=== PATIENT | male | born 1990 | race Caucasian/White ===

== ENCOUNTER 2020-01-13 16:10 | Outpatient (CLI) | payer BC, SELFPAY ==
--- NOTE | 2020-01-13 16:16 | CT_ITS ---
WS: [id number] CT LUMBAR SPINE, noncontrast. HISTORY: SEVERE LOW BACK PAIN TECHNIQUE: Contiguous 2.5 mm axial imaging are performed. Sagittal and coronal reformats are submitte d and reviewed. All CT scans at [facility] use at least one of these dose optimization te chniques: automated exposure control; mA and/or kV adjustment per patient size (includes targeted exa ms where dose is matched to clinical indication); or iterative reconstruction. IV contrast: None DLP: 2015.13 mGycm COMPARISON: None available. Normal lumbar alignment. Vertebral body heights and the disc spaces are well-maintained. No fractures are identified. Transverse processes and the spinous processes are intact. Visualized sacrum is inta ct. L1-2: Normal. L2-3: Normal. L3-4: Mild disc bulging and ligamentum flavum hypertrophy. L4-5: Mild annular disc bulging with mild encroachment upon the ventral thecal sac, subarticular rece sses and foramen. L5-S1: Normal. Visualized retroperitoneum is normal. CT/CT lumbar spine wo con* [id number] IMPRESSION: 1. No acute lumbar spine fracture. 2. Mild central, subarticular recess and foraminal stenosis at L4-5.
== END 2020-01-13 16:11 | disposition home or self-care (01) ==
LOC: RADWPI 16:16
PROVIDERS: PCP Nurse Practitioner Family; Visit Provider Nurse Practitioner Family
DX: M54.5 Low back pain (principal); M48.061 Spinal stenosis, lumbar region without neurogenic claudication
CPT/HCPCS: 72131

== ENCOUNTER 2020-04-07 06:24 | Outpatient (CLI) | payer BC, SELFPAY ==
--- NOTE | 2020-04-07 06:59 | ECG_ITS ---
[facility] Test Date: 2020-04-07 Pat Name: Francisco Andrews Department: Room: Gender: Male Sailing Officer: Maritza Knapp : 1990 Requested By: Omayra Yang Order Number: [id number] Pavan MD: Claudia Jones M.D. Interpretive Statements NAME OF STUDY: LEXISCAN SESTAMIBI STRESS TEST INDICATION: Chest Pain PROCEDURE: At the baseline, the blood pressure was 155/79 mmHg with a heart rate of 98 bpm. The electrocardiogram showed sinus rhythm, normal axis and RSR' in V1 likely normal variant. Nonspecific T wave inversion. The Lexiscan was infused over a period of 20 seconds. A total of 0.4 milligrams of Lexiscan was infused. The stress phase was continued for a total of 5 minutes. Heart rate at the end of the stress phase was 103 bpm with a blood pressure 166/67 mmHg. The EKG at the peak infusion revealed sinus tachycardia with no significant ST-T wave changes. Study was terminated due to protocol completion. Sestamibi was injected 20 seconds after the Lexiscan infusion. Blood pressure at the end of the recovery phase was 139/67 mmHg with a heart rate of 105 beats per minute. CONCLUSION: 1. Normal EKG response to LexiScan infusion. 2. No LexiScan induced chest pain or cardiac arrhythmia. 3. Functional status could not be assessed given pharmacological protocol. 4. Baseline hypertension with normal blood pressure and heart rate response. 5. Sestamibi/sestamibi perfusion scan pending; see separate report. Electronically Signed On 04-07-2020 10:06:46 CDT by Claudia Jones M.D. [email or web address]
--- NOTE | 2020-04-07 07:00 | NMCV_ITS ---
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 Images obtained in supine and prone position. SPECT RESULTS Technical Quality: Excellent Raw Data Analysis: Normal Image Corrections: No attenuation or motion correction applied Summed Stress Score: 0 Summed Rest Score: 5 Summed Difference Score: 0 PERFUSION FINDINGS Small area of fixed perfusion defect noted in basal to mid anterior and medium- sized area of fixed perfusion defect noted in basal to mid inferior and inferoseptal wall suggestive of old myocardial infarction versus scarring. No ischemia detected. FUNCTIONAL RESULTS (calculated via Gated SPECT) Stress Image LV EF (%): 66 Stress EDV (mL):145 TID: 0.83 Stress ESV (mL):49 Rest Image LV EF (%): 66 FUNCTIONAL FINDINGS: Basal to mid inferior inferoseptal wall hypokinesis IMPRESSIONS Small area of old myocardial infarction versus scarring noted in basal to mid anterior and medium-sized area of old myocardial infarction versus scarring noted in basal to mid inferior and inferoseptal wall suggestive of old myocardial infarction versus scarring. This study is negative for ischemia. EKG segment will be documented separately. Latasha Amaral MD (Electronically Signed) Final Date: 07 April 2020 21:17 S
[2020-04-07 07:04] VITALS: BMI 44.9
[2020-04-07] MEDS: regadenoson 0.4 Mg/5 ml Syringe IVP (08:26)
== END 2020-04-07 06:25 | disposition home or self-care (01) ==
LOC: RAD 06:27
PROVIDERS: PCP Nurse Practitioner Family; Visit Provider Nurse Practitioner Family
DX: R07.9 Chest pain, unspecified (principal); I25.2 Old myocardial infarction
CPT/HCPCS: 78452; 93017; A9500; J2785

== ENCOUNTER → 2020-10-11 08:46 | Outpatient (BNVA) | payer BC, SELFPAY | PROVIDERS: PCP Nurse Practitioner Family; Referring Provider Nurse Practitioner Family; Visit Provider Orthopaedic Surgery | DX: M25.562 Pain in left knee (principal) | CPT/HCPCS: 73560 ==

== ENCOUNTER → 2020-11-30 13:09 | Outpatient (BNVA) | payer BC, SELFPAY | PROVIDERS: PCP Nurse Practitioner Family; Visit Provider Orthopaedic Surgery | DX: M54.5 Low back pain (principal) | CPT/HCPCS: 72110 ==

== ENCOUNTER 2021-01-21 07:38 | Emergency (ER) | payer BC, SELFPAY ==
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
[2021-01-21 07:41] VITALS: BP 127/71; PULSE 121; RESP 30; O2SAT 92; BMI 42.8
[2021-01-21] MEDS: fentaNYL 50 mcg/mL INJ 2mL 100 MCG IVP ×2 (07:51→09:36)
[2021-01-21 07:54] VITALS: O2SAT 85
[2021-01-21] MEDS: lidocaine 1% INJ 20 mL INJECTION (07:55)
[2021-01-21] MEDS: fentaNYL 50 mcg/mL INJ 2mL IVP ×4 (08:01→09:18)
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
[2021-01-21 08:08] LABS: Alanine Aminotransferase 126 U/L (0-41); Albumin Level 4.4 g/dL (3.5-5.2); Alkaline Phosphatase 107 IU/L (40-130); Anion Gap 21.4 (5-19); Aspartate Amino Transferase 131 U/L (0-40); Blood Urea Nitrogen 13 mg/dL (6-20); Carbon Dioxide 21 mmol/L (22-29); Chloride 99 mmol/L (98-107); Globulin 2.6 g/dL (1.3-4.6); Glomerular Filtration Rate 134.3 mL/min (90-130); Glucose 177 mg/dL (65-115); Osmolality Calculated 288 mOsm/kg (285-295); Potassium 4.4 mmol/L (3.5-5.1); Sodium 137 mmol/L (136-145); Total Bilirubin 0.2 mg/dL (0.15-1.2)
[2021-01-21 08:09] LABS: INR 1.01 (0.8-1.2); Partial Thromboplastin Time 27.1 SECONDS (23.9-36.7)
--- NOTE | 2021-01-21 08:10 | PC.NURSE ---
,pt to ct scan by stretcher with COLLAR [employer]TER OVERLOCK and ER physician and RT
[2021-01-21 08:13] LABS: Basophils # 0.2 10^3/uL (0.0-0.1); Basophils % 0.7 %; Eosinophils # 0.4 10^3/uL (0.0-0.8); Eosinophils % 1.6 %; Hemoglobin 14.5 g/dL (11.7-16.6); Lymphocytes # 10.7 10^3/uL (0.8-4.8); Lymphocytes % 43.9 %; Mean Corpuscular Hemoglobin 29.8 pg (28.0-34.0); Mean Corpuscular Volume 90.5 fL (80-94); Mean Platelet Volume 9.6 fL (7.4-10.4); Monocytes # 1.5 10^3/uL (0.2-0.9); Neutrophils # 10.73 10^3/uL (1.8-7.7); Neutrophils % 44.1 %; Nucleated Red Blood Cells % 0 %; Platelet Count 536 10^3/cmm (130-400); Red Blood Count 4.86 10^6/uL (4.1-5.3); Red Cell Distribution Width 12.4 % (12.1-15.1); Slide Review Slide Review Perform; White Blood Count 24.3 10^3/uL (4.0-10.0)
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
[2021-01-21 08:30] VITALS: PULSE 123; RESP 32; O2SAT 97
[2021-01-21] MEDS: ceFAZolin 1,000 MG in sodium chloride 0.9% (plus) 50 ML 100 MG IV (08:30)
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
[2021-01-21 08:48] VITALS: BP 152/129
[2021-01-21] MEDS: iodixanol 320 mg/mL 100mL Btl IV (08:52)
--- NOTE | 2021-01-21 08:53 | PC.NURSE ---
1st unit of O- blood started at 0821 and finished infusing 0835. 2nd unit of O- blood started at 0839 and finished infusing 0854
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
[2021-01-21 09:09] VITALS: BP 169/86; PULSE 138; RESP 30; O2SAT 98
--- NOTE | 2021-01-21 09:34 | XR_ITS ---
WS: [id number] Exam: XR chest 1V portable [id number] Date/Time of Exam: 01/21/2021 9:34 AM Reason For Exam: CHEST TUBE PLACEMENT Comparison with the earlier exam performed on the same day at 0745 hours. Two Thoracostomy tubes are in place on the right. The upper tube extends into the upper medial right pleural cavity. The inferior most tube extends into the lower medial pleural cavity. The lungs appear to be fully inflated. Cardiomediastinal structures are unremarkable for technique. Bony structures a re intact as visualized. Mild subcutaneous emphysema along the right rib cage. XR/XR chest 1V portable [id number] IMPRESSION: 1. [address] in the right pleural cavity as noted above. Th e lungs appear to be fully expanded. 2. Cardiomediastinal structures are unremarkable. 3. The lungs appear to be relatively clear.
--- NOTE | 2021-01-21 09:48 | PC.NURSE ---
FFP started at 0908 and was completely infused at 0918
--- NOTE | 2021-01-21 09:49 | PC.NURSE ---
pt sent with 4 units of PRBC
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
--- NOTE | 2021-01-27 07:03 | PC.NURSE ---
*2 28fr chest tubes, and *1 36fr chest tube used. unable to document these charges
== END 2021-01-21 09:52 ==
PROVIDERS: Physician Assistant; Emergency Provider Family Medicine; PCP Nurse Practitioner Family
DX: S25.00XA Unspecified injury of thoracic aorta, initial encounter (principal); S27.0XXA Traumatic pneumothorax, initial encounter; S72.352A Displaced comminuted fracture of shaft of left femur, initial encounter for closed fracture; S72.321A Displaced transverse fracture of shaft of right femur, initial encounter for closed fracture; S82.891A Other fracture of right lower leg, initial encounter for closed fracture; I10 Essential (primary) hypertension; F17.210 Nicotine dependence, cigarettes, uncomplicated; V89.2XXA Person injured in unspecified motor-vehicle accident, traffic, initial encounter
CPT/HCPCS: 32551; 70450; 71045; 71260; 72125; 73551; 73560; 73600; 74178; 80053; 85025; 85610; 85730; 86850; 86900; 86920; 86927; 96365; 96367; 96375; 96376; 99291; 99292; J0690; J3010; P9016; P9017; Q9967

== ENCOUNTER 2021-04-29 12:05 | Emergency (ER) | payer BC, SELFPAY ==
[2021-04-29 12:41] VITALS: BP 164/84; PULSE 119; RESP 18; TEMP 36.4; O2SAT 98; BMI 42.2
--- NOTE | 2021-04-29 12:49 | CT_ITS ---
WS: [id number] CT ABDOMEN AND PELVIS WITH CONTRAST HISTORY: General abdominal pain with vomiting for 2 days. TECHNIQUE: Imaging performed of the abdomen and pelvis with IV contrast. Single phase imaging of the abdomen. Coronal and sagittal reformats are submitted. All CT scans at [facility] use at [address] one of these dose optimization techniques: automated exposure control; mA and/or kV adjustment per patient size (includes targeted exams where dose is matched to clinical indication); or iterative re construction. IV CONTRAST: Omnipaque 300; 95 mL IV. Oral contrast: No DLP: 2285.68 mGy.cm COMPARISON: 01/21/2021 Lower thorax: Lung bases are clear. Heart is normal size. Small hiatal hernia. Liver/biliary system: Liver is top normal size. Coarse echotexture from hepatic steatosis. No bile du ct dilatation or mass. Gallbladder: Normal. No gallstones or wall thickening. No pericholecystic fluid. Pancreas: Normal size pancreas and pancreatic duct. No adjacent inflammation. Spleen: Normal size spleen. No mass or infarct. Adrenal glands: Normal. Right kidney: Normal. Left kidney: Normal. Aorta: Normal. Lymphadenopathy: None. Free fluid: None. GI tract: Normal appendix. There is very minimal mucosal edema involving predominantly the transverse colon. No significant amount of adjacent inflammation and no obstruction. Abdominal wall: Unremarkable abdominal wall. No hernia. Pelvis: No free fluid or adenopathy within the pelvis. Bones: Rib fractures are reidentified in the posterior RIGHT thorax. These were described on 1. CT/CT abdomen pelvis w con* [id number] IMPRESSION: 1. Very minimal changes of colitis involving the transverse colon. No obstruct ion or ascites. 2. Normal appendix. 3. Mild hepatic steatosis.
[2021-04-29] MEDS: ondansetron 2 mg/ML SDV 2 mL 4 MG IVP (13:05)
[2021-04-29] MEDS: sodium chloride 0.9% 1,000 ML 999 ML IV ×3 (13:05→17:09)
[2021-04-29 13:09] VITALS: BP 142/109; PULSE 116; RESP 18; O2SAT 98
[2021-04-29 13:22] LABS: Basophils # 0.1 10^3/uL (0.0-0.1); Basophils % 0.5 %; Eosinophils % 0.2 %; Hematocrit 46.7 % (42.0-52.0); Hemoglobin 15.9 g/dL (11.7-16.6); Lymphocytes # 2.7 10^3/uL (0.8-4.8); Lymphocytes % 22.1 %; Mean Corpuscular Hemoglobin 28.5 pg (28.0-34.0); Mean Corpuscular Volume 83.8 fl (80-94); Mean Platelet Volume 9.4 fL (7.4-10.4); Monocytes # 0.6 10^3/uL (0.2-0.9); Neutrophils # 8.71 10^3/uL (1.8-7.7); Neutrophils % 71.8 %; Nucleated Red Blood Cells % 0 %; Platelet Count 508 10^3/cmm (130-400); Red Blood Count 5.57 10^6/uL (4.1-5.3); Red Cell Distribution Width 13.2 % (12.1-15.1); White Blood Count 12.1 10^3/uL (4.0-10.0)
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
[2021-04-29 13:49] LABS: Alanine Aminotransferase 42 U/L (0-41); Albumin Level 4.6 g/dL (3.5-5.2); Alkaline Phosphatase 197 IU/L (40-130); Anion Gap 25.4 (5-19); Aspartate Amino Transferase 29 U/L (0-40); Blood Urea Nitrogen 14 mg/dL (6-20); Calcium 9.9 mg/dL (8.5-10.5); Carbon Dioxide 19 mmol/L (22-29); Chloride 93 mmol/L (98-107); Creatine Phosphokinase 54 U/L (39-308); Globulin 3.8 g/dL (1.3-4.6); Glomerular Filtration Rate 160.4 mL/min (90-130); Glucose 158 mg/dL (65-115); Lipase 17 U/L (13-60); Osmolality Calculated 280 mOsm/kg (285-295); Potassium 4.4 mmol/L (3.5-5.1); Sodium 133 mmol/L (136-145); Total Bilirubin 0.4 mg/dL (0.15-1.2); Total Protein 8.4 g/dL (6.6-8.7)
[2021-04-29] MEDS: iohexol 300 mg/mL 100 mL Btl IV (13:53)
[2021-04-29] MEDS: promethazine 25 mg/mL SDV 1 mL IM (14:38)
[2021-04-29 14:49] VITALS: BP 144/79; PULSE 119; RESP 18; O2SAT 100
[2021-04-29 16:00] VITALS: BP 136/77; PULSE 112; RESP 18; O2SAT 97
--- NOTE | 2021-04-29 16:04 | XRR_ITS ---
PROCEDURE INFORMATION: Exam: XR Chest Exam date and time: 04/29/2021 4:04 PM Age: 30 years old Clinical indication: Cough and dyspnea; Additional info: Dyspnea/cough TECHNIQUE: Imaging protocol: XR of the chest. Views: 1 view. COMPARISON: CR XR chest 1V portable [id number] 01/21/2021 9:30 AM FINDINGS: Lungs: Unremarkable. No consolidation. Pleural spaces: Unremarkable. No pleural effusion. No pneumothorax. Heart/Mediastinum: Unremarkable. No cardiomegaly. Bones/joints: Unremarkable. XR/XR chest 1V portable [id number] IMPRESSION: No acute findings.
[2021-04-29] MEDS: LORazepam 2 mg/mL INJ 1 mL IVP (17:09)
[2021-04-29 17:46] LABS: ABG PCO2 39.4 mmHg (35-45); ABG PH Result 7.38 (7.35-7.45); Alveolar-Arterial Oxygen Gradi 3.8 mmHg (5-10); Arterial Blood Gas Hematocrit 44.3 % (42-52); Base Excess ABG -1.5 mmol/L (-2.0-2.0); Blood Gas Allen Test Pos; Blood Gas Operator Identificat CAK; Blood Gas Sample Site Radial, left; Blood Gas Sample Type Arterial; Carboxyhemoglobin 0.6 %THgb (0.4-20.1); HCO3 ABG 23.4 mmol/L (22-26); HGB O2 Sat 92.6 % (95-100); Ionized Calcium Level - ABG 1.2 mmol/L (1.1-1.4); Methemoglobin 0.9 % (0.4-1.5); Oxygen Device ROOM AIR; PO2 ABG 71.4 mmHg (80.0-100.0); Total Hemoglobin 14.5 g/dL (14-18)
[2021-04-29 18:29] LABS: Anion Gap 15.3 (5-19); Blood Urea Nitrogen 13 mg/dL (6-20); Calcium 8.5 mg/dL (8.5-10.5); Carbon Dioxide 24 mmol/L (22-29); Chloride 101 mmol/L (98-107); Glucose 115 mg/dL (65-115); Osmolality Calculated 283 mOsm/kg (285-295); Potassium 4.3 mmol/L (3.5-5.1); Sodium 136 mmol/L (136-145)
[2021-04-29] MEDS: sodium chloride 0.9% 1,000 ML 150 ML IV (20:25)
[2021-04-29 21:56] LABS: Add Urine Microscopic? YES; Bilirubin Urine Neg (Negative); Blood Urine Neg (Negative); Glucose Urine UA Norm (Normal); Ketones Urine 3+ (Negative); Leukocyte Esterase Urine Negative (Negative); Nitrate Urine Negative (Negative); Protein Urine 1+ (Negative); Urine Appearance Clear (CLEAR); Urine Color Yellow (Yellow); Urobilinogen Urine 1 mg/dL (Negative); pH Urine 7 (5-7)
[2021-04-29 22:02] LABS: Add Urine Culture? No; Bacteria Urine TRACE /hpf; Mucus Urine 2+ /hpf; RBC Urine 0-4 /hpf (0-2); Squamous Epithelial Cell Urine 0-4 /hpf (0-5); WBC Urine 0-4 /hpf (0-5)
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
[2021-04-30 01:00] VITALS: BP 134/84; PULSE 118; RESP 20; O2SAT 99
--- NOTE | 2021-04-30 01:06 | ECG_ITS ---
[facility] Test Date: 2021-04-30 Pat Name: Francisco Andrews Department: Room: ED Gender: Male Health Unit Supervisor: : 1990 Requested By: Viviana Vasquez Order Number: [id number] Reading MD: MAGY CARTER Measurements Intervals [place] Rate: 104 P: 31 [place]: 142 QRS: 52 QRSD: 95 T: 31 QT: 326 QTc: 429 Interpretive Statements SINUS TACHYCARDIA POSSIBLE RIGHT VENTRICULAR CONDUCTION DELAY [RSR (QR) IN V1/V2] NONSPECIFIC T-WAVE ABNORMALITY ABNORMAL RHYTHM ECG No previous ECG available for comparison Electronically Signed On 04-30-2021 20:18:04 CDT by MAGY CARTER [email or web address]
[2021-04-30] MEDS: metoprolol tartrate 1 mg/1 mL SDV 5 mL 2.5 MG IVP (01:14)
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
[2021-04-30 02:15] VITALS: BP 133/88; PULSE 90; RESP 20; TEMP 37; O2SAT 97
[2021-04-30 06:37] LABS: Estmated Average Glucose 114; Hemoglobin A1C 5.6 % (4.0-6.0)
[2021-04-30 08:03] LABS: Thyroid Stimulating Hormone 0.64 uIU/mL (0.27-4.20)
[2021-05-01 07:57] LABS: Glucose Point of Care 97 mg/dL (70-110)
== END 2021-04-30 02:15 | disposition still patient (30) ==
LOC: ER 16:51 → ER IP 04-30 01:03
PROVIDERS: Hospitalist; Physician Assistant; Emergency Provider Family Medicine; PCP Nurse Practitioner Family
DX: K52.9 Noninfective gastroenteritis and colitis, unspecified (principal); R00.0 Tachycardia, unspecified; T50.905A Adverse effect of unspecified drugs, medicaments and biological substances, initial encounter; I10 Essential (primary) hypertension; Z87.891 Personal history of nicotine dependence
CPT/HCPCS: 36416; 36600; 71045; 74177; 80048; 80051; 80053; 81001; 82330; 82550; 82805; 82962; 83036; 83690; 84443; 85025; 93005; 96361; 96372; 96374; 96375; 99284; J2060; J2405; J2550; J3490; J7030; Q9967

== ENCOUNTER 2021-06-27 11:09 | Emergency (ER) | payer BC, SELFPAY ==
[2021-06-27] VITALS (7 sets, daily range): BP systolic 122–167; BP diastolic 55–90; PULSE 90–115; RESP 14–24; TEMP 36.6–36.8; O2SAT 94–99; BMI 42.3
--- NOTE | 2021-06-27 12:53 | PC.NURSE ---
notified charge nurse galina lutz of need of room she verbalized understanding no room given.
[2021-06-27 15:55] LABS: Basophils # 0.1 10^3/uL (0.0-0.1); Basophils % 0.6 %; Eosinophils # 0.2 10^3/uL (0.0-0.8); Eosinophils % 1.3 %; Hematocrit 45.7 % (42.0-52.0); Hemoglobin 14.8 g/dL (11.7-16.6); Lymphocytes % 31.7 %; Mean Corpuscular HGB Conc 32.4 g/dL (30.0-36.0); Mean Corpuscular Hemoglobin 28.8 pg (28.0-34.0); Mean Corpuscular Volume 89.1 fl (80-94); Mean Platelet Volume 9.1 fL (7.4-10.4); Monocytes # 0.9 10^3/uL (0.2-0.9); Monocytes % 7.3 %; Neutrophils # 7.42 10^3/uL (1.8-7.7); Neutrophils % 58.7 %; Nucleated Red Blood Cells % 0 %; Platelet Count 515 10^3/cmm (130-400); Red Blood Count 5.13 10^6/uL (4.1-5.3); Red Cell Distribution Width 13.1 % (12.1-15.1); White Blood Count 12.6 10^3/uL (4.0-10.0)
[2021-06-27 16:11] LABS: Alanine Aminotransferase 34 U/L (0-41); Albumin Level 4.7 g/dL (3.5-5.2); Alkaline Phosphatase 208 IU/L (40-130); Aspartate Amino Transferase 26 U/L (0-40); Blood Urea Nitrogen 12 mg/dL (6-20); Calcium 9.6 mg/dL (8.5-10.5); Carbon Dioxide 28 mmol/L (22-29); Chloride 97 mmol/L (98-107); Globulin 3.5 g/dL (1.3-4.6); Glucose 89 mg/dL (65-115); Lipase 18 U/L (13-60); Osmolality Calculated 283 mOsm/kg (285-295); Sodium 137 mmol/L (136-145); Total Bilirubin 0.5 mg/dL (0.15-1.2); Total Protein 8.2 g/dL (6.6-8.7)
[2021-06-27 16:13] LABS: Anion Gap 16.5 (5-19); Potassium 4.5 mmol/L (3.5-5.1)
[2021-06-27 16:19] LABS: Bilirubin Urine 1+ (Negative); Blood Urine Neg (Negative); Glucose Urine UA Norm (Normal); Ketones Urine 1+ (Negative); Nitrate Urine Negative (Negative); Protein Urine Neg (Negative); Urine Appearance Cloudy (CLEAR); Urine Color Yellow (Yellow); pH Urine 5 (5-7)
[2021-06-27 16:20] LABS: Add Urine Culture? No; Add Urine Microscopic? YES; Bacteria Urine 1+ /hpf; Leukocyte Esterase Urine Trace (Negative); Mucus Urine 3+ /hpf; RBC Urine 0-4 /hpf (0-2); Squamous Epithelial Cell Urine 15-25 /hpf (0-5); Transitional Epi Cells Urine 0-4 /hpf; Urobilinogen Urine 1 mg/dL (Negative)
--- NOTE | 2021-06-27 17:40 | CTR_ITS ---
PROCEDURE INFORMATION: Exam: CT Abdomen And Pelvis With Contrast Exam date and time: 06/27/2021 5:40 PM Age: 30 years old Clinical indication: Nausea and vomiting; Abdominal pain; Additional info: Abdominal pain, n/v/d; HX of colitis TECHNIQUE: Imaging protocol: Computed tomography of the abdomen and pelvis with contrast. Radiation optimization: All CT scans at this facility use at least one of these dose optimization techniques: automated exposure control; mA and/or kV adjustment per patient size (includes targeted exams where dose is matched to clinical indication); or iterative reconstruction. Contrast material: OMNI 300; Contrast volume: 95 ml; Contrast route: INTRAVENOUS (IV); COMPARISON: CT abdomen pelvis w con* [id number] 04/29/2021 1:48 PM RADIATION DOSE METRICS: Total DLP (mGy-cm): FINDINGS: Liver: Normal. No mass. Gallbladder and bile ducts: Normal. No calcified stones. No ductal dilation. Pancreas: Normal. No ductal dilation. Spleen: Normal. No splenomegaly. Adrenal glands: Normal. No mass. Kidneys and ureters: Normal. No hydronephrosis. Stomach and bowel: Decompressed descending colon with mild wall thickening. The remainder of the colon is unremarkable. The stomach and small bowel are normal. No obstruction. Appendix: The appendix is visualized and is normal. Intraperitoneal space: Unremarkable. No free air. No significant fluid collection. Vasculature: Unremarkable. No abdominal aortic aneurysm. Lymph nodes: Unremarkable. No enlarged lymph nodes. Urinary bladder: Unremarkable as visualized. Reproductive: Unremarkable as visualized. Bones/joints: Hardware in the left femur. Old right rib fractures. No acute fracture. Soft tissues: Unremarkable. CT/CT abdomen pelvis w con* [id number] IMPRESSION: 1. Mild wall thickening in the descending colon may relate to nondistention. Mild colitis is not entirely excluded. 2. Otherwise no acute abnormality identified. Radiation Dose CTDIVOL = (mGy): DLP = (mGy-cm)
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
[2021-06-27] MEDS: iohexol 300 mg/mL 100 mL Btl IV (18:01)
[2021-06-27] MEDS: ondansetron 2 mg/ML SDV 2 mL 4 MG IVP (18:30)
[2021-06-27] MEDS: sodium chloride 0.9% 1,000 ML 999 ML IV ×2 (18:30→22:07)
[2021-06-27] MEDS: metoclopramide 5 mg/mL SDV 2 mL 10 MG IVP (20:49)
[2021-06-28 00:08] VITALS: BP 147/93; PULSE 105; RESP 18; O2SAT 98
== END 2021-06-28 00:10 | disposition home or self-care (01) ==
PROVIDERS: Nurse Practitioner Family; Emergency Provider Physician Assistant; PCP Nurse Practitioner Family
DX: R10.9 Unspecified abdominal pain (principal); R11.2 Nausea with vomiting, unspecified; R19.7 Diarrhea, unspecified; I10 Essential (primary) hypertension; Z79.84 Long term (current) use of oral hypoglycemic drugs; Z87.891 Personal history of nicotine dependence
CPT/HCPCS: 74177; 80053; 81001; 82274; 83630; 83690; 85025; 87493; 87506; 96361; 96374; 96375; 99284; J2405; J2765; J7030; Q9967

== ENCOUNTER 2021-10-14 12:27 | Emergency (ER) | payer OTHER, SELFPAY ==
[2021-10-14 12:31] VITALS: BP 159/88; PULSE 58; RESP 18; O2SAT 100; BMI 41.1
[2021-10-14 12:47] VITALS: BP 97/80; PULSE 58; RESP 18; O2SAT 100
--- NOTE | 2021-10-14 13:05 | CT_ITS ---
WS: [id number] CT ABDOMEN PELVIS TECHNIQUE: Contrast-enhanced CT of the abdomen and pelvis with coronal and sagittal reformatted image s. CLINICAL INFORMATION: abd pain COMPARISON: June 27, 2021. DLP: 2069.[address] scans at [facility] use at least one of these dose optimization techniques: automated e xposure control; mA and/or kV adjustment per patient size (includes targeted exams where dose is matc hed to clinical indication); or iterative reconstruction. FINDINGS: Tiny esophageal hiatal hernia.Air-fluid level in the stomach with mucosal enhancement exten ding into the duodenum can be seen with gastroduodenitis.Lung bases are well aerated. Chronic healed RIGHT rib fractures with callus formation. Normal liver. Normal spleen. Normal gallbladder. Normal pancreas. Adrenal glands are normal. Normal r enal parenchymal enhancement. No hydronephrosis. No obstructing renal or ureteral calculi. Normal smith creatic parenchymal enhancement. Normal portal vein and splenic vein. Normal caliber abdominal aorta. No periaortic lymphadenopathy. Normal sigmoid colon. No evidence of high-grade small or large bowel obstruction. Normal appendix in the RIGHT lower quadrant. No evidence of acute appendicitis. Normal lumbar spine. CT/CT abdomen pelvis w con* [id number] IMPRESSION: 1. Tiny esophageal hiatal hernia. 2. Air-fluid level in the stomach with mucosal enhancement extending into the duodenum can be seen with gastroduodenitis. 3. No other acute findings in the abdomen or pelvis. 4. Normal appendix in the RIGHT lower quadrant. No evidence of acute appendici tis. 5. No hydronephrosis. No obstructing renal or ureteral calculi. 6. Chronic RIGHT rib fractures with callus formation.
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
[2021-10-14] MEDS: ondansetron 2 mg/ML SDV 2 mL 4 MG IVP (13:23)
[2021-10-14] MEDS: sodium chloride 0.9% 1,000 ML 999 ML IV (13:24)
[2021-10-14 13:32] LABS: Basophils % 0.3 %; Hematocrit 45.9 % (42.0-52.0); Hemoglobin 15.4 g/dL (11.7-16.6); Lymphocytes # 1.2 10^3/uL (0.8-4.8); Lymphocytes % 8.3 %; Mean Corpuscular HGB Conc 33.6 g/dL (30.0-36.0); Mean Corpuscular Hemoglobin 29.2 pg (28.0-34.0); Mean Corpuscular Volume 87.1 fl (80-94); Mean Platelet Volume 9.9 fL (7.4-10.4); Monocytes # 0.5 10^3/uL (0.2-0.9); Monocytes % 3.3 %; Neutrophils # 13.07 10^3/uL (1.8-7.7); Neutrophils % 87.8 %; Nucleated Red Blood Cells % 0 %; Platelet Count 416 10^3/cmm (130-400); Red Blood Count 5.27 10^6/uL (4.1-5.3); Red Cell Distribution Width 12.1 % (12.1-15.1); White Blood Count 14.9 10^3/uL (4.0-10.0)
[2021-10-14] MEDS: iohexol 300 mg/mL 100 mL Btl IV (13:38)
[2021-10-14 13:57] LABS: Alanine Aminotransferase 17 U/L (0-41); Albumin Level 4.9 g/dL (3.5-5.2); Alkaline Phosphatase 180 IU/L (40-130); Aspartate Amino Transferase 17 U/L (0-40); Blood Urea Nitrogen 9 mg/dL (6-20); Calcium 10.2 mg/dL (8.5-10.5); Carbon Dioxide 22 mmol/L (22-29); Chloride 101 mmol/L (98-107); Glomerular Filtration Rate 159.3 mL/min (90-130); Glucose 117 mg/dL (65-115); Lipase 17 U/L (13-60); Osmolality Calculated 288 mOsm/kg (285-295); Sodium 139 mmol/L (136-145); Total Bilirubin 0.3 mg/dL (0.15-1.2); Total Protein 7.9 g/dL (6.6-8.7)
[2021-10-14 14:31] VITALS: BP 175/93; PULSE 60; RESP 16; O2SAT 100
[2021-10-14] MEDS: haloperidol inj 5 mg/mL INJ 1 mL IVP (14:44)
[2021-10-14 15:19] VITALS: BP 148/69; PULSE 98; RESP 20; O2SAT 100
[2021-10-14 15:54] VITALS: BP 145/73; PULSE 98; RESP 18; O2SAT 100
== END 2021-10-14 15:56 | disposition home or self-care (01) ==
PROVIDERS: Emergency Provider Emergency Medicine; PCP Nurse Practitioner Family
DX: R11.10 Vomiting, unspecified (principal); F12.90 Cannabis use, unspecified, uncomplicated; I10 Essential (primary) hypertension; Z87.891 Personal history of nicotine dependence
CPT/HCPCS: 74177; 80053; 83690; 85025; 96361; 96374; 96375; 99284; J1630; J2405; J7030; Q9967

== ENCOUNTER 2021-11-10 20:22 | Emergency (ER) | payer OTHER, SELFPAY ==
[2021-11-10 20:24] VITALS: BP 139/85; PULSE 125; RESP 22; TEMP 36.7; O2SAT 94; BMI 39.1
--- NOTE | 2021-11-10 20:37 | XRR_ITS ---
PROCEDURE INFORMATION: Exam: XR Left Hip Exam date and time: 11/10/2021 7:45 PM Age: 31 years old Clinical indication: Injury or trauma; Fall; Blunt trauma (contusions or hematomas); Hip; Prior surgery; Surgery type: Bilateral femoral rods. ; Patient HX: Patient fell today and felt a pop in left thigh. TECHNIQUE: Imaging protocol: XR Left hip. Views: 2 or 3 views hip with pelvis when performed. COMPARISON: CT abdomen pelvis w con* [id number] 10/14/2021 1:38 PM, no femoral images available for comparison FINDINGS: Tubes, catheters and devices: Intramedullary yue in place. Bones/joints: Possible healed posterior femoral shaft fracture with possible large 12.8 cm acute displaced fragment anteriorly. Soft tissues: Vertical row skin clarita over the left proximal thigh consistent with recent surgery. XR/XR hip LT 2-3V wo/w pel* [id number] IMPRESSION: 1. Vertical row skin clarita over the left proximal thigh consistent with recent surgery. 2. Intramedullary yue in place. 3. Possible healed posterior femoral shaft fracture with possible large 12.8 cm acute displaced fragment anteriorly.
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
[2021-11-10 20:49] VITALS: RESP 20
[2021-11-10] MEDS: morphine 4 mg/mL SDV 1 mL 2 MG IVP (20:49)
[2021-11-10 21:50] VITALS: BP 144/84; PULSE 91; RESP 18; O2SAT 98
[2021-11-11 01:17] VITALS: BP 120/68; PULSE 90; RESP 18; O2SAT 98
== END 2021-11-11 01:36 | disposition home or self-care (01) ==
PROVIDERS: Emergency Provider Emergency Medicine; PCP Nurse Practitioner Family
DX: M25.552 Pain in left hip (principal); I10 Essential (primary) hypertension; Z87.891 Personal history of nicotine dependence
CPT/HCPCS: 73502; 96374; 99283; J2270

== ENCOUNTER 2022-05-15 13:51 | Emergency (ER) | payer OTHER, SELFPAY ==
[2022-05-15 14:09] VITALS: BP 165/101; PULSE 75; RESP 16; TEMP 36; O2SAT 100
[2022-05-15 14:52] LABS: Basophils % 0.3 %; Hematocrit 44.9 % (42.0-52.0); Hemoglobin 15.3 g/dL (11.7-16.6); Lymphocytes # 1.3 10^3/uL (0.8-4.8); Mean Corpuscular HGB Conc 34.1 g/dL (30.0-36.0); Mean Corpuscular Hemoglobin 30.1 pg (28.0-34.0); Mean Corpuscular Volume 88.2 fl (80-94); Mean Platelet Volume 9.6 fL (7.4-10.4); Monocytes # 0.4 10^3/uL (0.2-0.9); Monocytes % 2.9 %; Neutrophils # 13.04 10^3/uL (1.8-7.7); Neutrophils % 87.3 %; Nucleated Red Blood Cells % 0 %; Platelet Count 419 10^3/cmm (130-400); Red Blood Count 5.09 10^6/uL (4.1-5.3); Red Cell Distribution Width 12.6 % (12.1-15.1); White Blood Count 14.9 10^3/uL (4.0-10.0)
--- NOTE | 2022-05-15 15:05 | CTR_ITS ---
PROCEDURE INFORMATION: Exam: CT Abdomen And Pelvis Without Contrast Exam date and time: 05/15/2022 3:16 PM Age: 31 years old Clinical indication: Nausea and vomiting; Abdominal pain; Additional info: Abd pain TECHNIQUE: Imaging protocol: Computed tomography of the abdomen and pelvis without contrast. Radiation optimization: All CT scans at this facility use at least one of these dose optimization techniques: automated exposure control; mA and/or kV adjustment per patient size (includes targeted exams where dose is matched to clinical indication); or iterative reconstruction. COMPARISON: CT abdomen pelvis w con* [id number] 10/14/2021 1:38 PM RADIATION DOSE METRICS: Total DLP (mGy-cm): 1196.23 FINDINGS: Liver: Probable mild hepatic steatosis. Gallbladder and bile ducts: Normal. No calcified stones. No ductal dilation. Pancreas: Normal. No ductal dilation. Spleen: Normal. No splenomegaly. Adrenal glands: Normal. No mass. Kidneys and ureters: No obstructing calculus. No hydronephrosis. Stomach and bowel: Small amount of fecal retention. No obvious bowel dilatation, pneumatosis or suspicious bowel wall thickening however assessment is limited due to lack of contrast. Appendix: Normal appendix Intraperitoneal space: Unremarkable. No free air. No significant fluid collection. Vasculature: No abdominal aortic aneurysm. Lymph nodes: No enlarged lymph nodes. Urinary bladder: Unremarkable as visualized. Reproductive: Unremarkable as visualized. Bones/joints: No acute fracture. Soft tissues: No acute findings. CT/CT abdomen pelvis wo con [id number] IMPRESSION: Probable mild hepatic steatosis. No acute abdominopelvic findings otherwise. Somewhat limited exam due to lack of contrast.
[2022-05-15 15:06] VITALS: BP 171/95; PULSE 65; RESP 19; O2SAT 97
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
[2022-05-15 15:13] LABS: Alanine Aminotransferase 14 U/L (0-41); Albumin Level 4.5 g/dL (3.5-5.2); Alkaline Phosphatase 164 U/L (40-130); Anion Gap 17.5 (5-19); Aspartate Amino Transferase 15 U/L (0-40); Blood Urea Nitrogen 12 mg/dL (6-20); Calcium 9.6 mg/dL (8.5-10.5); Carbon Dioxide 22 mmol/L (22-29); Chloride 102 mmol/L (98-107); Globulin 3.1 g/dL (1.3-4.6); Glomerular Filtration Rate 159.3 mL/min (90-130); Glucose 135 mg/dL (65-115); Lipase 20 U/L (13-60); Osmolality Calculated 286 mOsm/kg (285-295); Potassium 4.5 mmol/L (3.5-5.1); Sodium 137 mmol/L (136-145); Total Bilirubin 0.4 mg/dL (0.15-1.2); Total Protein 7.6 g/dL (6.6-8.7)
[2022-05-15] MEDS: sodium chloride 0.9% 1,000 ML 999 ML IV (15:35)
[2022-05-15] MEDS: metoclopramide 5 mg/mL SDV 2 mL 10 MG IVP (15:38)
[2022-05-15] MEDS: diphenhydrAMINE 50 mg/mL SDV 1mL IVP (15:38)
[2022-05-15] MEDS: promethazine 25 mg Tablet PO (16:27)
[2022-05-15 16:33] VITALS: RESP 17
== END 2022-05-15 16:39 | disposition home or self-care (01) ==
PROVIDERS: Emergency Provider Emergency Medicine; PCP Nurse Practitioner Family
DX: R11.2 Nausea with vomiting, unspecified (principal); I10 Essential (primary) hypertension; Z87.891 Personal history of nicotine dependence
CPT/HCPCS: 36415; 74176; 80053; 83690; 85025; 96361; 96374; 96375; 99285; J1200; J2765; J7030; Q0169

== ENCOUNTER 2022-05-17 06:56 | Emergency (ER) | payer OTHER, SELFPAY ==
[2022-05-17 07:05] VITALS: BP 200/117; PULSE 68; RESP 14; TEMP 36.6; O2SAT 99; BMI 35.5
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
[2022-05-17 07:50] LABS: Basophils # 0.1 10^3/uL (0.0-0.1); Basophils % 0.5 %; Eosinophils % 0.1 %; Hematocrit 45.1 % (42.0-52.0); Hemoglobin 15.2 g/dL (11.7-16.6); Lymphocytes # 1.7 10^3/uL (0.8-4.8); Lymphocytes % 11.9 %; Mean Corpuscular HGB Conc 33.7 g/dL (30.0-36.0); Mean Corpuscular Hemoglobin 29.9 pg (28.0-34.0); Mean Corpuscular Volume 88.6 fl (80-94); Mean Platelet Volume 9.6 fL (7.4-10.4); Monocytes # 0.7 10^3/uL (0.2-0.9); Monocytes % 4.8 %; Neutrophils # 11.56 10^3/uL (1.8-7.7); Neutrophils % 82.4 %; Nucleated Red Blood Cells % 0 %; Platelet Count 406 10^3/cmm (130-400); Red Blood Count 5.09 10^6/uL (4.1-5.3); Red Cell Distribution Width 12.7 % (12.1-15.1)
[2022-05-17] MEDS: midazolam 1 mg/mL INJ 2 mL 2 MG IVP (07:56)
[2022-05-17] MEDS: haloperidol inj 5 mg/mL INJ 1 mL 2.5 MG IVP (07:56)
[2022-05-17] MEDS: sodium chloride 0.9% 1,000 ML 999 ML IV (07:57)
[2022-05-17 08:10] LABS: Alanine Aminotransferase 16 U/L (0-41); Albumin Level 4.6 g/dL (3.5-5.2); Alkaline Phosphatase 149 U/L (40-130); Anion Gap 17.7 (5-19); Aspartate Amino Transferase 18 U/L (0-40); Blood Urea Nitrogen 11 mg/dL (6-20); Calcium 9.3 mg/dL (8.5-10.5); Carbon Dioxide 23 mmol/L (22-29); Chloride 101 mmol/L (98-107); Globulin 2.9 g/dL (1.3-4.6); Glomerular Filtration Rate 159.3 mL/min (90-130); Glucose 107 mg/dL (65-115); Lipase 21 U/L (13-60); Osmolality Calculated 286 mOsm/kg (285-295); Potassium 3.7 mmol/L (3.5-5.1); Sodium 138 mmol/L (136-145); Total Bilirubin 0.4 mg/dL (0.15-1.2); Total Protein 7.5 g/dL (6.6-8.7)
[2022-05-17 09:42] VITALS: BP 136/74
== END 2022-05-17 09:44 | disposition home or self-care (01) ==
PROVIDERS: Emergency Provider Family Medicine; PCP Nurse Practitioner Family
DX: R11.2 Nausea with vomiting, unspecified (principal); F12.90 Cannabis use, unspecified, uncomplicated; I10 Essential (primary) hypertension; E66.9 Obesity, unspecified; Z68.35 Body mass index [BMI] 35.0-35.9, adult; Z87.891 Personal history of nicotine dependence
CPT/HCPCS: 80053; 83690; 85025; 96374; 96375; 99284; J1630; J2250; J7030

== ENCOUNTER 2022-06-19 06:10 | Emergency (ER) | payer OTHER, SELFPAY ==
[2022-06-19] VITALS (8 sets, daily range): BP systolic 158–176; BP diastolic 87–103; PULSE 77–121; RESP 12–18; TEMP 36.6; O2SAT 92–99; BMI 33.7
--- NOTE | 2022-06-19 06:25 | XR_ITS ---
WS: [id number] Exam: XR chest 1V portable [id number] Date/Time of Exam: 06/19/2022 7:02 AM Reason For Exam: dyspnea/cough Comparison 04/29/2021. Findings: The lungs are clear and fully expanded. Costophrenic angles are sharp. No infiltrates. Bronchovascula r relief appears normal. Cardiac silhouette is unremarkable. Bony elements are intact. XR/XR chest 1V portable [id number] IMPRESSION: Unremarkable chest radiograph.
--- NOTE | 2022-06-19 06:26 | ECG_ITS ---
[facility] Test Date: 2022-06-19 Pat Name: Francisco Andrews Department: Room: Gender: Male Coronary Care Unit Nurse: : 1990 Requested By: Scott Borges Order Number: [id number] Pavan MD: Claudia Jones M.D. Measurements Intervals [place] Rate: 96 P: 48 [place]: 134 QRS: 68 QRSD: 97 T: 45 QT: 443 QTc: 562 Interpretive Statements SINUS RHYTHM PROLONGED QT INTERVAL Compared to ECG 04/30/2021 01:14:35 Prolonged QT interval now present Sinus tachycardia no longer present T-wave abnormality no longer present Electronically Signed On 06-19-2022 22:55:12 CDT by Claudia Jones M.D. [email or web address]
[2022-06-19 06:41] LABS: Basophils # 0.1 10^3/uL (0.0-0.1); Basophils % 0.3 %; Hematocrit 47.9 % (42.0-52.0); Lymphocytes # 3.3 10^3/uL (0.8-4.8); Mean Corpuscular HGB Conc 35.5 g/dL (30.0-36.0); Mean Corpuscular Volume 84.6 fl (80-94); Mean Platelet Volume 9.8 fL (7.4-10.4); Monocytes # 1.5 10^3/uL (0.2-0.9); Monocytes % 8.5 %; Neutrophils % 71.8 %; Nucleated Red Blood Cells % 0 %; Platelet Count 510 10^3/cmm (130-400); Red Blood Count 5.66 10^6/uL (4.1-5.3); Red Cell Distribution Width 12.3 % (12.1-15.1); White Blood Count 17.6 10^3/uL (4.0-10.0)
[2022-06-19] MEDS: midazolam 1 mg/mL INJ 2 mL 2 MG IVP (06:41)
[2022-06-19] MEDS: haloperidol inj 5 mg/mL INJ 1 mL 2.5 MG IM (06:41)
[2022-06-19] MEDS: sodium chloride 0.9% 1,000 ML 999 ML IV ×2 (06:42→07:43)
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
[2022-06-19 07:01] LABS: Alanine Aminotransferase 21 U/L (0-41); Albumin Level 5.1 g/dL (3.5-5.2); Alkaline Phosphatase 160 U/L (40-130); Anion Gap 25.6 (5-19); Aspartate Amino Transferase 18 U/L (0-40); Blood Urea Nitrogen 20 mg/dL (6-20); Calcium 9.9 mg/dL (8.5-10.5); Carbon Dioxide 19 mmol/L (22-29); Chloride 92 mmol/L (98-107); Globulin 3.4 g/dL (1.3-4.6); Glomerular Filtration Rate 114.3 mL/min (90-130); Glucose 141 mg/dL (65-115); Lipase 20 U/L (13-60); Osmolality Calculated 281 mOsm/kg (285-295); Potassium 3.6 mmol/L (3.5-5.1); Sodium 133 mmol/L (136-145); Total Bilirubin 0.8 mg/dL (0.15-1.2); Total Protein 8.5 g/dL (6.6-8.7)
== END 2022-06-19 09:50 | disposition home or self-care (01) ==
PROVIDERS: Emergency Provider Family Medicine
DX: R11.2 Nausea with vomiting, unspecified (principal); F12.90 Cannabis use, unspecified, uncomplicated; I10 Essential (primary) hypertension; Z87.891 Personal history of nicotine dependence
CPT/HCPCS: 71045; 80053; 83690; 85025; 93005; 96361; 96372; 96374; 99285; J1630; J2250; J7030